=== PATIENT | male | born 1955 | race African-American/Black ===

== ENCOUNTER 2023-02-24 16:40 | Emergency (ER) | payer OTHER ==
[2023-02-24] MEDS ORDERED: ONDANSETRON 4 MG/2 ML VIAL ONE (17:34)
[2023-02-24] MEDS ORDERED: FAMOTIDINE 20 MG/2 ML VIAL IV ONE (17:35)
[2023-02-24] MEDS ORDERED: NA CHLORIDE 0.9% 500 ML ONE (17:35)
[2023-02-24 17:53] LABS: Absolute Lymphocytes (CBC) 1.2 K/uL (0.7-4.9); Hematocrit 37.9 % (39.6-49.0); MCV 74.1 fL (80-100); MPV 8.3 fL (7.6-11.3); Platelets 205 thou/uL (152-406); RBC Red Blood Cell Count 5.11 M/uL (4.33-5.43)
[2023-02-24 18:09] LABS: Albumin 3.4 g/dL (3.4-5.0); Bilirubin Total 0.7 mg/dL (0.2-1.0); Potassium 3.8 mEq/L (3.5-5.1); Protein, Total 7.2 g/dL (6.4-8.2)
--- NOTE | 2023-02-24 19:00 | EDPHYS ---
Physician Documentation [facility] Name: Sotero Dsouza Age: 67 yrs Sex: Male : 1955 Arrival Date: 02/24/2023 Time: 16:40 Bed 13 Private MD: ED Physician Jose Young HPI: 02/25 09:12 This 67 yrs old Black Male presents to ER via Ambulatory with complaints of kdr Nausea/Vomiting/Diarrhea. 09:12 Patient states that he has been vomiting for about 2 days. Is also had intermittent kdr diarrhea but not consistent and none today. He also has not vomited since yesterday. Patient reports also some lower abdominal pain which he ascribes to the effort with vomiting. Patient had a prior appendectomy.. Onset: The symptoms/episode began/occurred gradually, 3 day(s) ago. Severity of symptoms: At their worst the symptoms were mild moderate just prior to arrival, in the emergency department the symptoms have improved markedly, The patient has not had any vomiting or diarrhea since yesterday and and is not currently nauseated. The patient has not experienced similar symptoms in the past. The patient has not recently seen a physician. Historical: - Allergies: 02/24 17:10 No Known Allergies; ss - Home Meds: 17:10 metoprolol tartrate 50 mg Oral tablet 1 tab daily [Active]; amlodipine 5 mg tablet 1 ss tab daily [Active]; - PMHx: 17:10 Hypertensive disorder; ss - PSHx: 17:10 Appendectomy; ss - Immunization history:: Client reports receiving the 2nd dose of the Covid vaccine. - Social history:: Smoking status: Patient denies any tobacco usage or history of. ROS: 02/25 09:12 Constitutional: Negative for fever, chills, and weight loss, Eyes: Negative for injury, kdr pain, redness, and discharge, Neck: Negative for injury, pain, and swelling, Cardiovascular: Negative for chest pain, palpitations, and edema, Respiratory: Negative for shortness of breath, cough, wheezing, and pleuritic chest pain, Back: Negative for injury and pain, : Negative for injury, bleeding, discharge, and swelling, MS/Extremity: Negative for injury and deformity, Skin: Negative for injury, rash, and discoloration, Neuro: Negative for headache, weakness, numbness, tingling, and seizure activity. Psych: Negative for depression, anxiety, suicide ideation, homicidal ideation, and hallucinations, Allergy/Immunology: Negative for hives, rash, and allergies, Endocrine: Negative for neck swelling, polydipsia, polyuria, polyphagia, and marked weight changes, Hematologic/Lymphatic: Negative for swollen nodes, abnormal bleeding, and unusual bruising. Abdomen/GI: Positive for abdominal pain, nausea, vomiting, and diarrhea, of the right lower quadrant and left lower quadrant. Exam: 09:12 Constitutional: This is a well developed, well nourished patient who is awake, alert, kdr and in no acute distress. Head/Face: Normocephalic, atraumatic. Eyes: Pupils equal round and reactive to light, extra-ocular motions intact. Lids and lashes normal. Conjunctiva and sclera are non-icteric and not injected. Cornea within normal limits. Periorbital areas with no swelling, redness, or edema. Neck: Trachea midline, no thyromegaly or masses palpated, and no cervical lymphadenopathy. Supple, full range of motion without nuchal rigidity, or vertebral point tenderness. No Meningismus. Chest/axilla: Normal chest wall appearance and motion. Nontender with no deformity. No lesions are appreciated. Cardiovascular: Regular rate and rhythm with a normal S1 and S2. No gallops, murmurs, or rubs. Normal PMI, no JVD. No pulse deficits. Respiratory: Lungs have equal breath sounds bilaterally, clear to auscultation and percussion. No rales, rhonchi or wheezes noted. No increased work of breathing, no retractions or nasal flaring. Abdomen/GI: Soft, non-tender, with normal bowel sounds. No distension or tympany. No guarding or rebound. No evidence of tenderness throughout. Back: No spinal tenderness. No costovertebral tenderness. Full range of motion. Skin: Warm, dry with normal turgor. Normal color with no rashes, no lesions, and no evidence of cellulitis. MS/ Extremity: Pulses equal, no cyanosis. Neurovascular intact. Full, normal range of motion. Neuro: Awake and alert, GCS 15, oriented to person, place, time, and situation. Cranial nerves II-XII grossly intact. Motor strength 5/5 in all extremities. Sensory grossly intact. Cerebellar exam normal. Normal gait. Psych: Awake, alert, with orientation to person, place and time. Behavior, mood, and affect are within normal limits. Vital Signs: 02/24 17:08 BP 142 / 78; Pulse 60; Resp 16; Temp 98.3(TE); Pulse Ox 98% on R/A; Height 6 ft. 2 in. ss ; Pain 7/10; 18:35 BP 138 / 72; Pulse 66; Resp 16; Pulse Ox 100% on R/A; hb 17:08 Pain Scale: Adult ss MDM: 18:59 Patient medically screened. kdr 02/25 09:12 Data reviewed: vital signs, nurses notes, lab test result(s). ED course: Patient passed kdr a p.o. challenge without problem and was happy to go home with medication. 02/24 17:18 Order name: CBC with Diff; Complete Time: 18:51 kdr 02/24 17:18 Order name: CMP; Complete Time: 18:51 kdr 02/24 17:18 Order name: Lipase; Complete Time: 18:51 kdr 02/24 17:18 Order name: IV Saline Lock; Complete Time: 18:01 kdr 02/24 17:18 Order name: Labs collected and sent; Complete Time: 18:01 kdr 02/24 17:59 Order name: PO challenge; Complete Time: 18:35 kdr Administered Medications: 02/24 18:00 Drug: Famotidine IVP 20 mg Route: IVP; Site: right forearm; hb 18:35 Follow up: Response: No adverse reaction hb 18:00 Drug: NS 0.9% IV 500 ml Route: IV; Rate: bolus; Site: right forearm; hb 19:16 Follow up: IV Status: Completed infusion kd3 18:01 Drug: Ondansetron IVP 4 mg Route: IVP; Site: right forearm; hb 18:35 Follow up: Response: No adverse reaction hb Disposition Summary: 02/24/23 18:59 Discharge Ordered Location: Home kdr Problem: new kdr Symptoms: have improved kdr Condition: Stable kdr Diagnosis - Nausea with vomiting, unspecified kdr - Diarrhea, unspecified kdr Followup: kdr - With: Private Physician - When: 2 - 3 days - Reason: If symptoms return, Further diagnostic work-up, Recheck today's complaints, Continuance of care, Re-evaluation by your physician Discharge Instructions: - Discharge Summary Sheet kdr - Nausea and Vomiting, Adult kdr - Diarrhea, Adult, [id number] kdr Forms: - Medication Reconciliation Form kdr - Thank You Letter kdr - Patient Portal Instructions kdr - Leadership Thank You Letter kdr Prescriptions: - ondansetron 4 mg Oral Tablet,disintegrating - take 2 tablet by ORAL route 3 times per day As needed; 12 tablet; Refills: 0, kdr Product Selection Permitted Signatures: Dispatcher [employer] EDJose Stauffer MD MD kdr Phuong Simon RN RN Charline Leggett RN RN Saritha Kerr RN kd3
--- NOTE | 2023-02-24 19:00 | ER ---
Nurse's Notes [facility] [place] Name: Sotero Dsouza Age: 67 yrs Sex: Male : 1955 Arrival Date: 02/24/2023 Time: 16:40 Bed 13 Private MD: Diagnosis: Nausea with vomiting, unspecified;Diarrhea, unspecified Presentation: 02/24 17:08 Chief complaint: Patient states: N/V/D that began 2 days ago. Pt reports soreness in ss lower abd, "from vomiting.". Coronavirus screen: Client denies travel out of the [place] in the last 14 days. Ebola Screen: Patient denies exposure to infectious person. Patient denies travel to an Ebola-affected area in the 21 days before illness onset. Initial Sepsis Screen: Does the patient meet any 2 criteria? No. Patient's initial sepsis screen is negative. Does the patient have a suspected source of infection? No. Patient's initial sepsis screen is negative. Risk Assessment: Do you want to hurt yourself or someone else? Patient reports no desire to harm self or others. Onset of symptoms was February 23, 2023. 17:08 Method Of Arrival: Ambulatory ss 17:08 Acuity: TAYLOR 3 ss Historical: - Allergies: 17:10 No Known Allergies; ss - Home Meds: 17:10 metoprolol tartrate 50 mg Oral tablet 1 tab daily [Active]; amlodipine 5 mg tablet 1 ss tab daily [Active]; - PMHx: 17:10 Hypertensive disorder; ss - PSHx: 17:10 Appendectomy; ss - Immunization history:: Client reports receiving the 2nd dose of the Covid vaccine. - Social history:: Smoking status: Patient denies any tobacco usage or history of. Screenin:10 [facility] ED Fall Risk Assessment (Adult) Score/Fall Risk Level 0 - 2 = Low Risk. Abuse me1 screen: Denies threats or abuse. Nutritional screening: No deficits noted. Tuberculosis screening: No symptoms or risk factors identified. Assessment: 17:10 General: Appears uncomfortable, slender, Behavior is calm, cooperative, appropriate for me1 age, Reports feeling ill for fatigue for n/v/d x 2 days with lower abdominal pain "from throwing up". Pain: Complains of pain in abdomen Pain does not radiate. Pain currently is 3 out of 10 on a pain scale. Quality of pain is described as tender, Pain began 2-3 days ago. Is continuous. Neuro: Level of Consciousness is awake, alert, obeys commands, Oriented to person, place, time, situation, Appropriate for age. Cardiovascular: Capillary refill < 3 seconds Patient's skin is warm and dry. Respiratory: Airway is patent Respiratory effort is even, unlabored, Respiratory pattern is regular, symmetrical. GI: Abdomen is flat, non-distended, Reports diarrhea, nausea, vomiting, since 02/22/23. : Denies burning with urination, pain urinary frequency, urgency. 18:01 Reassessment: Patient appears in no apparent distress at this time. Patient and/or hb family updated on plan of care and expected duration. Pain level reassessed. Patient is alert, oriented x 3, equal unlabored respirations, skin warm/dry/pink. Vital Signs: 17:08 BP 142 / 78; Pulse 60; Resp 16; Temp 98.3(TE); Pulse Ox 98% on R/A; Height 6 ft. 2 in. ss ; Pain 7/10; 18:35 BP 138 / 72; Pulse 66; Resp 16; Pulse Ox 100% on R/A; hb 17:08 Pain Scale: Adult ss ED Course: 16:43 Patient arrived in ED. ts1 16:44 Jose Young MD is Attending Physician. kdr 17:10 Triage completed. ss 17:10 Lisa Gonzalez, SHERRY is Primary Nurse. me1 17:10 Arm band placed on right wrist. ss 17:10 Patient has correct armband on for positive identification. Bed in low position. Call me1 light in reach. Side rails up X 1. Provided Education on: POC. Verbalized understanding. . 17:10 No provider procedures requiring assistance completed. me1 17:56 Inserted saline lock: 22 gauge in right forearm, using aseptic technique. hb 19:05 Missed attempt(s): 22 gauge in right forearm. Bleeding controlled, band aid applied, sm8 catheter tip intact. 19:06 Missed attempt(s): 22 gauge in left forearm. Bleeding controlled, band aid applied, sm8 catheter tip intact. 19:16 IV discontinued, intact, bleeding controlled, No redness/swelling at site. Pressure kd3 dressing applied. Administered Medications: 18:00 Drug: Famotidine IVP 20 mg Route: IVP; Site: right forearm; hb 18:35 Follow up: Response: No adverse reaction hb 18:00 Drug: NS 0.9% IV 500 ml Route: IV; Rate: bolus; Site: right forearm; hb 19:16 Follow up: IV Status: Completed infusion kd3 18:01 Drug: Ondansetron IVP 4 mg Route: IVP; Site: right forearm; hb 18:35 Follow up: Response: No adverse reaction hb Medication: 17:10 VIS not applicable for this client. me1 Outcome: 18:59 Discharge ordered by . kdr 19:16 Discharged to home ambulatory, with family. kd3 19:16 Condition: stable 19:16 Discharge instructions given to patient, family, Instructed on discharge instructions, follow up and referral plans. medication usage, Demonstrated understanding of instructions, follow-up care, medications, Prescriptions given X 1. 19:16 Patient left the ED. kd3 Signatures: Jose Young MD MD kdr Phuong Simon RN RN Charline Leggett RN RN Saritha Alcala RN RN kd3 Alicia Lizarraga, SOPHIA PAS ts1 Amy Silverman sm8 Lisa Gonzalez RN RN me1
[2023-02-24 19:33] VITALS: TEMP 98.3
[2023-02-24 19:34] VITALS: BP 138/72; O2SAT 100
== END 2023-02-24 19:16 | disposition home or self-care (01) ==
LOC: ER 16:40
DX: R11.2 Nausea with vomiting, unspecified (principal); R19.7 Diarrhea, unspecified; I10 Essential (primary) hypertension
CPT/HCPCS: 96361; 85025; 36415; 83690; 80053; 96375; 96374; 99284; J2405; J7040